=== PATIENT | male | born 1955 | race Two or more races ===

== ENCOUNTER 2020-02-13 08:30 | Outpatient (CLI) | payer OTHER | END 2020-02-13 08:44 | disposition home or self-care (01) | LOC: LAB 08:30 | DX: K81.1 Chronic cholecystitis (principal); R19.4 Change in bowel habit; R10.11 Right upper quadrant pain; I10 Essential (primary) hypertension ==

== ENCOUNTER 2020-02-19 09:00 | Day surgery (SDC) | payer OTHER ==
[~2020-02-19 09:00] MED LIST: [UNRECOGNIZED DRUG - REMARK] PO
[2020-02-19] MEDS ORDERED: ZOFRAN4 MG PO (12:52)
[2020-02-19] MEDS ORDERED: PERCOCET 5-3251 EACH PO (12:52)
[2020-02-19] MEDS ORDERED: DICLOFENAC SODI75 MG PO (12:53)
[2020-02-19] MEDS ORDERED: PROTONIX40 MG PO (12:53)
== END 2020-02-19 16:50 | disposition home or self-care (01) ==
LOC: CIR.AMB 09:00
PROVIDERS: ATTEND Surgery
DX: K80.10 Calculus of gallbladder with chronic cholecystitis without obstruction (principal)